=== PATIENT | female | born 1955 | race African-American/Black ===

== ENCOUNTER → 2016-11-04 | Outpatient (CLI) | payer OTHER | LOC: RAD 01:13 | DX: Z12.31 Encounter for screening mammogram for malignant neoplasm of breast (principal) ==

== ENCOUNTER 2017-04-25 16:18 | Emergency (ER) | payer OTHER ==
[~2017-04-25] VITALS: Ht 162.6 cm; Wt 65.8 kg
--- NOTE | ~2017-04-25 | EKG ---
[address] [address] ELECTROCARDIOGRAM REPORT Name: NINO JONESVICKIE Room #: DEP [facility]#: [id number] Admission: 04/25/17 Attend Phys: Discharge: 04/25/17 Date of : 53 Report #: [id number] THIS REPORT FOR: //name// [facility] ED Test Date: 2017-04-25 Test Time: 16:45:32 Pat Name: VICKIE JONES Department: Room: Gender: F Field Associate: MZOOK : 1955 Requested By: Татьяна Ford Order Number: [id number] MD: Delroy Berg Measurements Intervals Clarita Rate: 100 P: 40 MD: 146 QRS: 11 QRSD: 79 T: 34 QT: 356 QTc: 460 Interpretive Statements Sinus tachycardia RSR' in V1 or V2, probably normal variant Borderline T wave abnormalities No previous ECG available for comparison Electronically Signed On 04-25-2017 23:03:01 CDT by Delroy Berg [email or web address] <ELECTRONICALLY SIGNED> By: Delroy Berg MD 04/25/17 2303 44 44 Delroy Berg MD /LESLY
[~2017-04-25 16:18] MED LIST: CARAFATE 1 GM TA1 G1 PO; ONDANSETRON HCL4 M2 PO
[2017-04-25 17:05] LABS: HEMATOCRIT 38.9 % (37.0-47.0); HEMOGLOBIN 13.4 gm/dL (12.0-15.0); MCH 30.1 pg (26.0-34.0); MCHC 34.5 g/dL (28.0-37.0); MCV 87.2 fL (80.0-100.0); PLATELET COUNT 125 thou/uL (150-400); RBC 4.46 mil/uL (4.20-5.00); RDW 13.3 % (10.5-14.5); WBC 2.5 thou/uL (4.0-11.0)
[2017-04-25 17:06] LABS: MANUAL DIFF YES
[2017-04-25 17:16] LABS: ANION GAP 9 mmol/L (7-16); BUN 7 mg/dL (7-18); CALCIUM 8.9 mg/dL (8.5-10.1); CHLORIDE 101 mmol/L (98-107); CO2 25 mmol/L (21-32); CREATININE 0.7 mg/dL (0.6-1.0); GLUCOSE 122 mg/dL (74-106); SODIUM 135 mmol/L (136-145)
[2017-04-25] MEDS ORDERED: METHOTREXATE 22.5 MG PO (17:18)
[2017-04-25] MEDS ORDERED: FOLIC ACID1 MG PO (17:18)
[2017-04-25 17:27] LABS: ALBUMIN 3.4 g/dL (3.4-5.0); ALKALINE PHOSPHATASE 138 U/L (46-116); NT-PRO BRAIN NAT PEPTIDE 14 pg/mL (<300); SGOT 54 U/L (15-37); SGPT 20 U/L (30-65); TOTAL BILIRUBIN 0.3 mg/dL (<0.1-1.0); TOTAL PROTEIN 7.1 g/dL (6.4-8.2); TROPONIN-I < 0.04 ng/mL (<0.04-0.07)
[2017-04-25 17:28] LABS: POTASSIUM 2.9 mmol/L (3.5-5.1)
[2017-04-25 17:38] LABS: ABSOLUTE NEUTROPHILS 1.7 thou/uL (1.4-8.2); TOTAL CELL COUNT 100
[2017-04-25 18:24] LABS: URINE BILIRUBIN NEGATIVE (Negative); URINE BLOOD NEGATIVE (Negative); URINE COLOR YELLOW; URINE GLUCOSE-RANDOM* NEGATIVE (Negative); URINE KETONES NEGATIVE (Negative); URINE NITRITE NEGATIVE (Negative); URINE PROTEIN (DIPSTICK) NEGATIVE (Negative); URINE SPECIFIC GRAVITY <= 1.005 (1.003-1.035); URINE UROBILINOGEN 0.2 E.U./dl (0.2-1.0)
[2017-04-25] MEDS ORDERED: MECLIZINE HCL12.5 MG PO (18:55)
[2017-04-25] MEDS ORDERED: KLOR-CON20 ME1 PO (18:55)
[2017-04-25 19:28] VITALS: BP 119/69
== END 2017-04-25 18:56 | disposition home or self-care (01) ==
LOC: ER 16:18
PROVIDERS: Physician Assistant
DX: E87.6 Hypokalemia (principal); H81.399 Other peripheral vertigo, unspecified ear; M06.9 Rheumatoid arthritis, unspecified

== ENCOUNTER → 2017-11-08 | Outpatient (CLI) | payer OTHER ==
[~2017-11-08] MED LIST changes: +FOLIC ACID1 MG PO; +KLOR-CON20 ME1 PO; +MECLIZINE HCL12.5 MG PO; +METHOTREXATE 22.5 MG PO
== END ==
LOC: RAD 11-06 01:05
DX: Z12.31 Encounter for screening mammogram for malignant neoplasm of breast (principal)

== ENCOUNTER → 2018-11-13 | Outpatient (CLI) | payer OTHER | LOC: RAD 11-07 14:47 | DX: Z12.31 Encounter for screening mammogram for malignant neoplasm of breast (principal) ==

== ENCOUNTER → 2018-12-17 | Outpatient (CLI) | payer OTHER ==
[~2018-12-17] VITALS: Ht 162.6 cm; Wt 68.0 kg
[~2018-12-17] MED LIST changes: +MOBIC15 MG PO; +NORVASC5 MG PO; +[UNRECOGNIZED DRUG - OTHER] PO
--- NOTE | ~2018-12-17 | P ---
[facility] [place] [address] PROCEDURE REPORT Name: VICKIE ONEILL Room #: [facility].#: [id number] Admission: 12/17/18 ������������������ Attend Phys: Wilfred Mayorga MD Discharge: ������������������ Date of : 53 Report #: [id number] THIS REPORT FOR: //name// CC: Wilfred Rowe MD DATE OF SERVICE: 12/17/2018 OUTPATIENT COLONOSCOPY: BRIEF HISTORY: The patient is a 63-year-old woman for average risk screening colonoscopy. Her last colonoscopy was in 2004. PREOPERATIVE DIAGNOSIS: Average risk screening colonoscopy. POSTOPERATIVE DIAGNOSIS: Mild to moderate sigmoid diverticulosis coli. MEDICATIONS: Deep sedation with propofol for anesthesia. SPECIMEN: None. ESTIMATED BLOOD LOSS: None. PROCEDURE: Colonoscopy to cecum and terminal ileum. FINDINGS: Prior to propofol sedation, procedure of colonoscopy discussed with the patient as well as potential risks and its complications. She indicates she understands and desires to proceed. DESCRIPTION OF PROCEDURE: The patient in left lateral decubitus position, digital examination was completed, which revealed no abnormalities. Subsequently, the Olympus video colonoscope was introduced into the rectum and advanced under direct vision to the cecum. Done with minimal difficulty. The cecum was identified by the ileocecal valve and the appendiceal orifice. I was able to visualize the distal segment of terminal ileum, which was inspected and noted to be unremarkable. At that point, the scope was slowly withdrawn and careful circumferential views were obtained. Upon slow withdrawal of the scope, the prep was excellent. The mucosa was within normal limits, normal vascular pattern, normal light reflex. As we withdrew the scope, no neoplastic lesions were seen. She had normal colonic mucosa throughout the entire colon. In the sigmoid colon, there was moderately severe diverticular disease without endoscopic evidence of diverticulitis. Scope was withdrawn in the rectum and no abnormalities were seen. Upon retroflexion, no abnormalities were seen. Scope was withdrawn. The patient tolerated the procedure well. [address] [address] PROCEDURE REPORT Name: VICKIE ONEILL Room #: [facility].#: [id number] Admission: 12/17/18 ������������������ Attend Phys: Wilfred Mayorga MD Discharge: ������������������ Date of : 53 Report #: [id number] CONDITION OF THE PATIENT UPON DISCHARGE: Following procedure, the patient was drowsy, aroused, conversant and will be discharged home when fully ambulatory. INSTRUCTIONS TO THE PATIENT AND FAMILY AT THE TIME OF DISCHARGE: No neoplastic lesions were seen. She is considered average risk and I will have her return in 10 years for average risk screening colonoscopy. She will otherwise return to the care of Dr. Bob Rowe and return to see me as needed. Last colonoscopy was in 2004. Withdrawal time from the cecum was 10 minutes 19 seconds. ��������������������������������������������� ���������������������������������������� By: ��������������������������������������������� 1108 12 Wilfred Mayorga MD /nt
== END | disposition home or self-care (01) ==
LOC: GI 07:56
DX: Z12.11 Encounter for screening for malignant neoplasm of colon (principal); K57.30 Diverticulosis of large intestine without perforation or abscess without bleeding; I10 Essential (primary) hypertension; M06.9 Rheumatoid arthritis, unspecified; Z90.49 Acquired absence of other specified parts of digestive tract; Z98.890 Other specified postprocedural states; Z79.899 Other long term (current) drug therapy
CPT/HCPCS: 62110; 62900

== ENCOUNTER → 2019-12-31 | Outpatient (CLI) | payer OTHER, MEDICARE | LOC: BC 08:26 | DX: Z12.31 Encounter for screening mammogram for malignant neoplasm of breast (principal) ==

== ENCOUNTER → 2021-01-05 | Outpatient (CLI) | payer OTHER, MEDICARE | LOC: BC 08:42 | PROVIDERS: ATTEND Specialist | DX: Z12.31 Encounter for screening mammogram for malignant neoplasm of breast (principal) ==